=== PATIENT | female | born 1985 | race Two or more races ===

== ENCOUNTER 2021-02-06 13:14 | Emergency (ER) | payer SELFPAY ==
[~2021-02-06] VITALS: Ht 157.5 cm; Wt 69.0 kg
--- NOTE | 2021-02-06 14:12 | PHYS DOC ---
General Adult EDM: Chief Complaint: VAGINAL BLEEDING HPI: HPI: Patient is a 35-year-old female who presents to the emergency department for bilateral low back pain and vaginal bleeding in . Patient reports that her last menstrual period was December 08 that she is approximately 8 weeks . She reports that yesterday she had some pink-tinged blood while wiping after urination. She rates her back pain is out of 10. No radiation. No injury. No treatment prior to arrival. Patient denies abdominal pain, nausea, vomiting, dysuria. Patient denies any intercourse prior to vaginal bleeding. She reports that she had STD testing 2 weeks ago and it was all ne gative. Patient has not establish care with an PAINT PREPPER at this time. She is G4, P3. Patient states that she wants to get checked because she is about to go on a long car ride. Review of Systems: Review of Systems: GI: See HPI : See HPI Musculoskeletal: See HPI Heart Score: C/O Chest Pain: N/A Risk Factors: Risk Factors: DM, Current or recent (<one month) smoker, HTN, HLP, family history of CAD, obesity. Risk Scores: Score 0 - 3: 2.5% MACE over next 6 weeks - Discharge Home Score 4 - 6: 20.3% MACE over next 6 weeks - Admit for Clinical Observation Score 7 - 10: 72.7% MACE over next 6 weeks - Early Invasive Strategies Physical Exam: PE: Constitutional: Well developed, well nourished, no acute distress, non-toxic appearance. [] HENT: Normocephalic, atraumatic, bilateral external ears normal, oropharynx moist, no oral exudates, nose normal. [] Eyes: PERRL, EOMI, conjunctiva normal, no discharge. [] Neck: Normal range of motion, no tenderness, supple, no stridor. [] Cardiovascular:Heart rate regular rhythm, no murmur [] Lungs & Thorax: Bilateral breath sounds clear to auscultation [] Abdomen: Bowel sounds normal, soft, no tenderness, no masses, no pulsatile masses. [] Skin: Warm, dry, no erythema, no rash. [] Back: No bony spinal tenderness, no CVA tenderness. [] Extremities: No tenderness, no cyanosis, no clubbing, ROM intact, no edema. [] Neurologic: Alert and oriented X 3, normal motor function, normal sensory function, no focal deficits noted. [] Psychologic: Affect normal, judgement normal, mood normal. [] Current Patient Data: Labs: Laboratory Tests Test 02/06/21 13:55 02/06/21 14:12 02/06/21 14:37 Urine Collection Type Unknown Urine Color Yellow Urine Clarity Turbid Urine pH 8.0 Urine Specific [place] 1.020 Urine Protein Negative mg/dL Urine Glucose (UA) Negative mg/dL Urine Ketones (Stick) Negative mg/dL Urine Blood Negative Urine Nitrite Negative Urine Bilirubin Negative Urine Urobilinogen Dipstick 0.2 mg/dL Urine Leukocyte Esterase Small Urine RBC 0 /HPF Urine WBC 5-10 /HPF Urine Squamous Epithelial Cells Mod /LPF Urine Amorphous Sediment Present /HPF Urine Bacteria Few /HPF Bedside Urine HCG, Qualitative Hcg positive White Blood Count 6.6 x10^3/uL Red Blood Count 3.87 x10^6/uL Hemoglobin 13.1 g/dL Hematocrit 37.8 % Mean Corpuscular Volume 98 fL Mean Corpuscular Hemoglobin 34 pg Mean Corpuscular Hemoglobin Concent 35 g/dL Red Cell Distribution Width 12.4 % Platelet Count 165 x10^3/uL Neutrophils (%) (Auto) 67 % Lymphocytes (%) (Auto) 22 % Monocytes (%) (Auto) 8 % Eosinophils (%) (Auto) 3 % Basophils (%) (Auto) 1 % Neutrophils # (Auto) 4.4 x10^3/uL Lymphocytes # (Auto) 1.5 x10^3/uL Monocytes # (Auto) 0.5 x10^3/uL Eosinophils # (Auto) 0.2 x10^3/uL Basophils # (Auto) 0.1 x10^3/uL Sodium Level 138 mmol/L Potassium Level 4.3 mmol/L Chloride Level 104 mmol/L Carbon Dioxide Level 26 mmol/L Anion Gap 8 Blood Urea Nitrogen 9 mg/dL Creatinine 0.6 mg/dL Estimated GFR (Cockcroft-Gault) 113.8 BUN/Creatinine Ratio 15 Glucose Level 91 mg/dL Calcium Level 8.4 mg/dL Total Bilirubin 0.2 mg/dL Aspartate Amino Transf (AST/SGOT) 26 U/L Alanine Aminotransferase (ALT/SGPT) 32 U/L Alkaline Phosphatase 74 U/L Total Protein 6.8 g/dL Albumin 3.5 g/dL Albumin/Globulin Ratio 1.1 EKG: EKG: [] Radiology/Procedures: Radiology/Procedures: []PROCEDURE: OB < 14 WKS EXAM: Obstetrics sonogram. HISTORY: Vaginal bleeding. TECHNIQUE: Transabdominal sonographic imaging of the pelvis was performed. COMPARISON: None. FINDINGS: The uterus measures 10 x 8 x 7 cm. There is a single intrauterine gestational sac with pole and yolk sac. The crown-rump length is 2.2 cm, corresponding with a gestational age of 8 weeks and 3 days. The heart rate is normal at 171 bpm. The estimated due date is 09/12/2021. The maternal ovaries are normal in size and demonstrate normal blood flow. There is a 1.7 cm complicated left ovarian cyst. No subchronic hematoma is seen. The anatomic fluid volume is grossly normal. The gestational sac is normal in configuration. IMPRESSION: 1. Single intrauterine fetus with normal heart rate and gestational age of 8 w eeks and 6 days. 2. 1.7 cm complicated left ovarian cyst, likely an involuting or hemorrhagic cyst. 3. No finding to correspond with reported vaginal bleeding. Electronically signed by: Lexy Arrgeuin MD (02/06/2021 3:17 PM) [id number] DICTATED and SIGNED BY: LEXY ARREGUIN MD DATE: 02/06/21 [id number] 0 Course & Med Decision Making: Course & Med Decision Making Pertinent Labs and Imaging studies reviewed. (See chart for details) [] Patient presents to the emergency department for light pink vaginal discharge and bilateral low back pain. Work-up in the ER consisted of blood work, urinalysis and ultrasound. Ultrasound shows single 8-week 6-day with a left 1.7 cm cyst no other cause for the bleeding noted. Patient's CBC and CMP were unremarkable. Patient has a urine UTI that will be treated with antibiotic. Patient is O+ and therefore not requiring RhoGam. Patient advised to follow-up with PAINT PREPPER, she was given a referral for Dr. Trinidad who is the PAINT PREPPER at [facility]. She is advised to take Tylenol for her back pain. I discussed with patient all findings and diagnostic testing as well as the need to follow-up with PCP for further evaluation and treatment or return to the ER if any new or worsening symptoms. Strict return precautions were also discussed at length. Patient voiced understanding and agreement with the plan. Patient is hemodynamically stable at the time of disposition. Dragon Disclaimer: Dragon Disclaimer: This electronic medical record was generated, in whole or in part, using a voice recognition dictation system. Departure Departure Impression: Primary Impression: Vaginal bleeding in patient at less than 20 weeks gestation Disposition: HOME / SELF CARE / HOMELESS Condition: GOOD Referrals: NICHOLE TRINIDAD MD Patient Instructions: Vaginal Bleeding During , First Trimester Additional Instructions: You were seen in the emergency department for vaginal bleeding and bilateral low back pain. You can take Tylenol for your back pain. An ultrasound was performed that showed a single approximately 8 weeks and 6 days. The ultrasound did not show any cause for your vaginal bleeding. Your blood work was unremarkable. You are O+. Your urinalysis did show urinary tract infection and this will be treated with an antibiotic. Please start and finish this antibiotic completely. Increase your fluids and avoid bladder irritants like sugary beverages, caffeine. Follow-up with an PAINT PREPPER soon as possible. If you do not have an PAINT PREPPER you can contact Dr. Trinidad who is information is attached to this paperwork. Return to the emergency department if you develop worsening of your vaginal bleeding, intractable nausea or vomiting, high fevers refractory to treatment, lightheadedness, chest pain, shortness of breath. Scripts Cephalexin (KEFLEX) 500 Mg Capsule 1 CAP PO QID for 7 Days, #28 CAP 0 Refills Prov: ALFA ASHLEY APRN 02/06/21 ALFA ASHLEY APRN Feb 06, 2021 14:12
[2021-02-06 14:20] LABS: BILIRUBIN,URINE NEGATIVE (NEG); CLARITY,URINE TURBID; COLOR,URINE YELLOW; NITRITE,URINE NEGATIVE (NEG); PROTEIN,URINE NEGATIVE (NEG-TRACE); UROBILINOGEN,URINE 0.2 mg/dL (0.2 mg/dL)
[2021-02-06 14:28] LABS: AMORPHOUS SEDIMENT,UR PRESENT /HPF; BACTERIA,URINE FEW /HPF (0-FEW); RBC,URINE 0 /HPF (0-2)
[2021-02-06 14:44] LABS: BASO # 0.1 x10^3/uL (0.0-0.2); BASO % 1 % (0-3); EOS # 0.2 x10^3/uL (0.0-0.7); EOS % 3 % (0-3); HEMATOCRIT 37.8 % (36.0-47.0); HEMOGLOBIN 13.1 g/dL (12.0-15.5); LYMPH # 1.5 x10^3/uL (1.0-4.8); LYMPH % 22 % (24-48); MEAN CORPUSCULAR HEMOGLOBIN 34 pg (25-35); MEAN CORPUSCULAR HGB CONC 35 g/dL (31-37); MEAN CORPUSCULAR VOLUME 98 fL (79-100); MONO # 0.5 x10^3/uL (0.0-1.1); MONO % 8 % (0-9); NEUT # 4.4 x10^3/uL (1.8-7.7); NEUT % 67 % (31-73); PLATELET COUNT 165 x10^3/uL (140-400); RED BLOOD COUNT 3.87 x10^6/uL (3.50-5.40); RED CELL DISTRIBUTION WIDTH 12.4 % (11.5-14.5); WHITE BLOOD COUNT 6.6 x10^3/uL (4.0-11.0)
[2021-02-06 14:53] LABS: CALCIUM 8.4 mg/dL (8.5-10.1); CREATININE 0.6 mg/dL (0.6-1.0); GFR 113.8; POTASSIUM 4.3 mmol/L (3.5-5.1)
[2021-02-06 14:59] LABS: ALBUMIN 3.5 g/dL (3.4-5.0); ALBUMIN/GLOBULIN RATIO 1.1 (1.0-1.7); TOTAL BILIRUBIN 0.2 mg/dL (0.2-1.0); TOTAL PROTEIN 6.8 g/dL (6.4-8.2)
--- NOTE | 2021-02-06 15:20 | RAD ---
EXAM: Obstetrics sonogram. HISTORY: Vaginal bleeding. TECHNIQUE: Transabdominal sonographic imaging of the pelvis was performed. COMPARISON: None. FINDINGS: The uterus measures 10 x 8 x 7 cm. There is a single intrauterine gestational sac with feta l pole and yolk sac. The crown-rump length is 2.2 cm, corresponding with a gestational age of 8 weeks and 3 days. The heart rate is normal at 171 bpm. The estimated due date is 09/12/2021. Th e maternal ovaries are normal in size and demonstrate normal blood flow. There is a 1.7 cm complicate d left ovarian cyst. No subchronic hematoma is seen. The anatomic fluid volume is grossly normal. The gestational sac is normal in configuration. IMPRESSION: 1. Single intrauterine fetus with normal heart rate and gestational age of 8 weeks and 6 days. 2. 1.7 cm complicated left ovarian cyst, likely an involuting or hemorrhagic cyst. 3. No finding to correspond with reported vaginal bleeding. Electronically signed by: Lexy Gregory MD (02/06/2021 3:17 PM) [id number]
[2021-02-06] MEDS ORDERED: CEPH500C PO (15:37)
[2021-02-06 16:32] VITALS: BP 111/51
== END 2021-02-06 16:33 | disposition home or self-care (01) ==
LOC: ER 13:14
DX: O46.91 Antepartum hemorrhage, unspecified, first trimester (principal); O34.81 Maternal care for other abnormalities of pelvic organs, first trimester; N83.202 Unspecified ovarian cyst, left side; Z3A.08 8 weeks gestation of pregnancy
CPT/HCPCS: 36415; 76801; 80053; 81001; 81025; 84702; 85025; 86900; 86901; 87086; 99285-25

== ENCOUNTER 2021-02-20 06:24 | Observation (INO) | payer SELFPAY ==
[~2021-02-20] VITALS: Ht 157.5 cm; Wt 68.0 kg
[2021-02-20] VITALS (11 sets, daily range): BP systolic 78–93; BP diastolic 46–65
[~2021-02-20 06:24] MED LIST: CEPH500C PO
[2021-02-20] MEDS ORDERED: IV NORMAL SALINE 1000ML BAG 1,000 ML IV ONE ×2 (07:00→07:45)
--- NOTE | 2021-02-20 07:35 | PHYS DOC ---
Past Medical History Past Medical History: No Pertinent History Past Surgical History: , Other Smoking Status: Never Smoker Alcohol Use: Occasionally Drug Use: None General Adult EDM: Chief Complaint: VAGINAL BLEEDING HPI: HPI: Patient is a 35-year-old female who presents to the emergency department with heavy vaginal bleeding at approximately 10 weeks gestation. She reports 2 weeks prior she presented to ED for dysuria and was diagnosed with UTI but subsequently was found to be . Reports was confirmed via ultrasound. Patient reports she is a with 1 and 2 vaginal deliveries. Patient reports past pregnancies have been uncomplicated per the patient. The patient denies being on any blood thinning medications. She reports that at 0500 hrs she went to the bathroom and had per her heavy bleeding with clots. Reports some dizziness. Denies fever/chills. Denies trauma. Denies known exposure to COVID-19. Review of Systems: Review of Systems: Constitutional: Denies fever or chills Eyes: Denies redness or eye pain HENT: Denies nasal congestion or sore throat Respiratory: Denies cough or shortness of breath Cardiovascular: Denies chest pain or palpitations; reports dizzy, lightheaded GI: Denies abdominal pain, nausea, or vomiting : Denies dysuria or hematuria; reports vaginal bleeding in Musculoskeletal: Denies back pain or joint pain Integument: Denies rash or skin lesions Neurologic: Denies headache, focal weakness or sensory changes Complete systems were reviewed and found to be within normal limits, except as documented in this note. Heart Score: C/O Chest Pain: N/A Family History: Family History: Unremarkable family history Current Medications: Current Medications Medications (Trade) Dose Ordered Sig/Terry Start Time Stop Time Status Last Admin Dose Admin Sodium Chloride 1,000 ml @ 1,000 mls/hr 1X ONCE 02/20/21 07:00 02/20/21 07:59 Allergies: Allergies: Allergies Coded Allergies Type Severity Reaction Last Updated Verified No Known Drug Allergies 02/06/21 No Physical Exam: PE: Constitutional: Well developed, well nourished, pale, mild distress, tearful HENT: Normocephalic, atraumatic Eyes: PERRL, conjunctiva normal, no discharge Neck: Normal range of motion, no tenderness, supple, no JVD, trachea midline Lungs & Thorax: No respiratory distress, normal chest wall excursion bilaterally, lung sounds clear to auscultation in all au bilateral Cardiovascular: +1 pulses regular rate rhythm, S1/S2 heart sounds normal Abdomen: Soft, no tenderness, no guarding Skin: Warm, dry, no erythema, no rash Pelvic exam: Pelvic exam chaperoned by Hazel MONTOYA. Patient with numerous large clots in the bed, patient positioned into the lithotomy position, blood was suctioned from the patient's vaginal canal a total amount of approximately 500 cc was in the suction canister at the end of the procedure, large clots were removed with ring forceps, products of conception was visualized within the cervical os, products were extracted from the vaginal canalan intact amniotic sac containing a visualized fetus was removed as well as a small piece of placental tissue Back: No tenderness, no CVA tenderness Extremities: No tenderness, ROM intact, no edema Neurologic: Alert and oriented X 3, normal motor function, normal sensory function, no focal deficits noted Psychologic: Affect normal, judgment normal Current Patient Data: Vital Signs: Vital Signs Date Time Temp Pulse Resp B/P (MAP) Pulse Ox O2 Delivery O2 Flow Rate FiO2 02/20/21 06:36 98.1 113 18 150/65 (93) 97 Room Air 98.1 EKG: EKG: [] Radiology/Procedures: Radiology/Procedures: PROCEDURE: OB < 14 WKS INDICATION: Reason: bleeding in early / Spl. Instructions: / History: COMPARISON: February 06, 2021 TECHNIQUE: Grayscale and color ultrasound images of the pelvis. FINDINGS: Uterus: 130 x 70 x 70 mm. No intrauterine gestational sac is seen. Right ovary is obscured. Left ovary is 26 x 20 x 19 mm. Vascular flow seen. IMPRESSION: * No intrauterine gestational sac or pole is identified. This can be seen with early failure with interval passage of gestational sac and pole. Electronically signed by: Vinod Villegas MD (02/20/2021 8:01 AM) [id number] Course & Med Decision Making: Course & Med Decision Making Pertinent Labs and Imaging studies reviewed. (See chart for details) 35-year-old female presents to the emergency department with report of heavy vaginal bleeding in . She reports recent confirmed by ultrasound, HPI as documented within this report. Patient was positioned on OB cart, soon after there were a significant amount of blood and large clots in the bed. Pelvic exam performed, chaperoned by Hazel MONTOYA. During pelvic exam approximately 500cc of blood was suctioned from the patient's vagina in total; additionally large clots were extracted from the vaginal canal. An intact embryonic sac containing fetus was extracted from the patient's cervical os. Following this procedure the patient continued actively hemorrhaging. While in the emergency department large-bore IV access was established, fluids were administered, blood work, continuous cardiac monitoring maintain. OB was consulted urgently. Spoke with Dr. Blackwood (OB-NEEDLE LEADER) who agreed with plan for surgical intervention with suction D&C. Plan for admission after OR. Discussed findings and plan with patient and family, who acknowledge understanding and agreement. Dragon Disclaimer: Dragon Disclaimer: This electronic medical record was generated, in whole or in part, using a voice recognition dictation system. Departure Departure Impression: Primary Impression: Incomplete miscarriage Additional Impressions: Hypotension Qualified Codes: I95.89 - Other hypotension; E86.1 - Hypovolemia Vaginal hemorrhage Disposition: ADMITTED INPATIENT (Dr. Blackwood (LOOM INSPECTOR)) Condition: GUARDED Referrals: NO PCP (PCP) Critical Care Time Critical care time was 30-74 minutes which includes time at bedside, spent in discussion of patient's care with specialists and/or family members, with interpretation of laboratory and/or radiological studies and is exclusive of procedures. NICHOLE ABAD DO Feb 20, 2021 07:35
[2021-02-20] MEDS ORDERED: fentaNYL PF VIAL 100 MCG/2 ML VIAL IVP PRN (07:45)
[2021-02-20] MEDS ORDERED: ONDANSETRON PF 4 MG/2 ML VIAL. IVP PRN (07:45)
--- NOTE | 2021-02-20 08:03 | RAD ---
INDICATION: Reason: bleeding in early / Spl. Instructions: / History: COMPARISON: February 06, 2021 TECHNIQUE: Grayscale and color ultrasound images of the pelvis. FINDINGS: Uterus: 130 x 70 x 70 mm. No intrauterine gestational sac is seen. Right ovary is obscured. Left ovary is 26 x 20 x 19 mm. Vascular flow seen. IMPRESSION: * No intrauterine gestational sac or pole is identified. This can be seen with early failure with interval passage of gestational sac and pole. Electronically signed by: Vinod Villegas MD (02/20/2021 8:01 AM) [id number]
[2021-02-20] MEDS ORDERED: SUCCINYLCHOLINE 200 MG/10 ML VIAL. ONE (08:14)
[2021-02-20] MEDS ORDERED: LIDOCAINE 2% PF 5 ML VIAL. ONE (08:14)
[2021-02-20] MEDS ORDERED: PROPOFOL 10 MG/ML (20ML) VIAL. IV ONE (08:14)
[2021-02-20] MEDS ORDERED: DEXAMETHASONE SOD PHOS 4 MG/ML VIAL ONE (08:14)
[2021-02-20] MEDS ORDERED: ONDANSETRON PF 4 MG/2 ML VIAL. ONE ×2 (08:14→08:19)
[2021-02-20] MEDS ORDERED: fentaNYL PF VIAL 100 MCG/2 ML VIAL ONE (08:17)
--- NOTE | 2021-02-20 08:17 | PDOC1 ---
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 Early this am the pt began to bleed heavy. When she presented to the ER it appeared that she passed most of her POC, but continued to bleed heavy. The pt has not established care yet. Medications: Meds: Current Medications Medications (Trade) Dose Ordered Sig/Terry Route PRN Reason Start Time Stop Time Status Last Admin Dose Admin Sodium Chloride 1,000 ml @ 1,000 mls/hr 1X ONCE IV 02/20/21 07:00 02/20/21 07:59 DC 02/20/21 07:00 Ondansetron HCl (Zofran) 4 mg PRN Q8HRS PRN IVP NAUSEA/VOMITING 02/20/21 07:45 02/21/21 07:44 02/20/21 08:03 Fentanyl Citrate (Fentanyl 2ml Vial) 50 mcg PRN Q2HRS PRN IVP PAIN 02/20/21 07:45 02/20/21 08:04 Sodium Chloride 1,000 ml @ 0 mls/hr 1X ONCE IV 02/20/21 07:45 02/20/21 07:49 DC 02/20/21 08:03 Allergies: Coded Allergies: No Known Drug Allergies (Unverified , 02/06/21) Physical Exam: Vital Signs: Vital Signs Date Time Temp Pulse Resp B/P (MAP) Pulse Ox O2 Delivery O2 Flow Rate FiO2 02/20/21 08:04 22 98 02/20/21 06:36 98.1 113 150/65 (93) Room Air 98.1 PE: GENERAL: No apparent distress. Alert and oriented. HEENT: Head normocephalic, atraumatic. NECK: Supple LUNGS: Clear to auscultation. HEART: RRR, S1, S2 present, pulses intact ABDOMEN: Soft, positive bowel sounds. EXTREMITIES: No cyanosis or edema. NEUROLOGIC: Normal speech, normal tone PSYCHIATRIC: Normal affect, normal mood. SKIN: No ulceration. PMH: Denies PSH: Denies Meds: PNV All: NKDA OBHx: TSVD x 2, TC/S x 1 SH: no tob, no EtOH FH: noncontributory Assessment & Plan: A/P 35y with a SAB ~10.4 1.) SAB since continued active bleeding will move toward suction D&C 2.) VB Hgb pending NICHOLE TRINIDAD MD Feb 20, 2021 08:17
[2021-02-20] MEDS ORDERED: MIDAZOLAM HCL/PF 2 MG/2 ML VIAL. ONE (08:18)
[2021-02-20 08:19] LABS: CALCIUM 8.3 mg/dL (8.5-10.1); CREATININE 0.6 mg/dL (0.6-1.0); GFR 113.8; POTASSIUM 3.3 mmol/L (3.5-5.1)
[2021-02-20 08:24] LABS: ALBUMIN 3.1 g/dL (3.4-5.0); MAGNESIUM 1.8 mg/dL (1.8-2.4); TOTAL BILIRUBIN 0.7 mg/dL (0.2-1.0); TOTAL PROTEIN 6.1 g/dL (6.4-8.2)
[2021-02-20] MEDS ORDERED: PHENYLEPHRINE in 0.9% NACL PF 1 MG/10 ML SYRINGE. IV ONE (08:26)
[2021-02-20] MEDS ORDERED: OXYTOCIN 10 UNIT/ML VIAL. ONE ×3 (08:27→08:28)
[2021-02-20 08:28] LABS: BASO % 0 % (0-3); EOS # 0.1 x10^3/uL (0.0-0.7); EOS % 1 % (0-3); HEMATOCRIT 34.7 % (36.0-47.0); HEMOGLOBIN 11.6 g/dL (12.0-15.5); LYMPH # 1.2 x10^3/uL (1.0-4.8); LYMPH % 10 % (24-48); MEAN CORPUSCULAR HEMOGLOBIN 33 pg (25-35); MEAN CORPUSCULAR HGB CONC 34 g/dL (31-37); MEAN CORPUSCULAR VOLUME 97 fL (79-100); MONO # 0.6 x10^3/uL (0.0-1.1); MONO % 5 % (0-9); NEUT # 9.9 x10^3/uL (1.8-7.7); NEUT % 84 % (31-73); PLATELET COUNT 142 x10^3/uL (140-400); RED BLOOD COUNT 3.57 x10^6/uL (3.50-5.40); RED CELL DISTRIBUTION WIDTH 12.2 % (11.5-14.5); WHITE BLOOD COUNT 11.7 x10^3/uL (4.0-11.0)
[2021-02-20] MEDS ORDERED: ROCURONIUM 50 MG/5 ML VIAL. ONE (08:28)
[2021-02-20] MEDS ORDERED: ETOMIDATE 20 MG/10 ML VIAL. IV ONE (08:30)
[2021-02-20] MEDS ORDERED: FAMOTIDINE 20 MG/2 ML VIAL ONE (08:45)
[2021-02-20] MEDS ORDERED: DOXYCYCLINE HYCLATE 100 MG in IV DEXTROSE 5% 100ML 100 ML IV ONE (09:00)
[2021-02-20] MEDS ORDERED: NEOSTIGMINE METHYLSULFATE 5 MG/5 ML SYRINGE. ONE (09:12)
[2021-02-20] MEDS ORDERED: GLYCOPYRROLATE 1 MG/5 ML VIAL. ONE (09:12)
[2021-02-20] MEDS ORDERED: OXYC1TAB15 PO (09:19)
[2021-02-20] MEDS ORDERED: IBUP-1060 PO (09:19)
--- NOTE | 2021-02-20 10:11 | PDOC4 ---
OPERATIVE NOTE: PreOp Dx: 1.) 10wk SAB, 2.) VB PostOp Dx: same Procedure: Suction D&C Surgeon: Geronimo Trinidad Anesthesia: LMA EBL: 200 cc Fluids: 1000 cc UOP: 75 cc Specimen: POC Complications: None NICHOLE TRINIDAD MD Feb 20, 2021 10:11
--- NOTE | 2021-02-20 10:30 | OP ---
DATE OF SURGERY: 02/20/2021 PREOPERATIVE DIAGNOSES: 1. Approximately 10-week spontaneous . 2. Vaginal bleeding. POSTOPERATIVE DIAGNOSES: 1. Approximately 10-week spontaneous . 2. Vaginal bleeding. PROCEDURE: Suction D and C. SURGEON: Jose J Blackwood MD ANESTHESIA: LMA. ESTIMATED BLOOD LOSS: 200 mL FLUIDS: 1000 mL URINE OUTPUT: 75 mL SPECIMENS: Products of conception. COMPLICATIONS: None. DESCRIPTION OF PROCEDURE: The patient was taken to the operating room where LMA was placed without difficulty. The patient was prepped and draped in normal sterile fashion. A posterior weighted speculum was placed in the patient's vagina and a right angle retractor was used to visualize the anterior lip of the cervix. A single tooth tenaculum was then placed on the anterior lip of the cervix. The cervix was sufficiently dilated to allow for 11 cm curved suction curette to be placed. The uterus had been sounded to approximately 12 cm. The curette was then advanced to the fundus and the suction was then activated. The curette was rotated until all products of conception were cleared. Once this was accomplished, sharp curetting was performed with minimal return of blood and gritty texture felt in all 4 quadrants. Before it was terminated, one more pass with the suction curette was then performed with no tissue returning. At that point, the procedure was terminated. The tenaculum was removed with minimal bleeding at the tenaculum site. Good hemostasis was noted. The patient was given 200 mg of doxycycline. ZOFIA DR: Catalino TID: [id number]
[2021-02-20 10:44] LABS: HEMATOCRIT 24.7 % (36.0-47.0); HEMOGLOBIN 8.2 g/dL (12.0-15.5); RED BLOOD COUNT 2.45 x10^6/uL (3.50-5.40); RED CELL DISTRIBUTION WIDTH 12.3 % (11.5-14.5); WHITE BLOOD COUNT 13.8 x10^3/uL (4.0-11.0)
[2021-02-20] MEDS ORDERED: IV RINGERS,LACTATED 1000ML 1,000 ML IV ONE (10:45)
[2021-02-20] MEDS ORDERED: oxyCODONE/APAP 5/325 1 TAB TABLET PO PRN (11:30)
[2021-02-20] MEDS ORDERED: IBUPROFEN 400 MG TABLET. PO PRN (11:30)
--- NOTE | 2021-02-20 12:10 | NUR ---
Received Patient from PACU for an extended recovery stay for low BPs. Patient awake denies pain. Vpad has small amount of bright red blood on pad. Plan discussed. Assessment done
--- NOTE | 2021-02-20 12:15 | NUR ---
Dr Blackwood here to see patient. orders for po fluids. Hbg at 1400.
--- NOTE | 2021-02-20 13:15 | NUR ---
Patient states needs to go to the BR. Two RN to assist. Patient states she is dizzy and hearing ringing in her ears. Assisted back to laying down. Bedpan given. Voided 200cc of blood tinged urine. New v pad placed. Jello and applesauce and crackers given
[2021-02-20] MEDS ORDERED: AMMONIA AROMATIC 15% INHALANT AMPUL. ONE (13:17)
[2021-02-20 14:36] LABS: BASO % 0 % (0-3); EOS % 0 % (0-3); HEMATOCRIT 22.7 % (36.0-47.0); HEMOGLOBIN 7.7 g/dL (12.0-15.5); LYMPH # 0.4 x10^3/uL (1.0-4.8); LYMPH % 3 % (24-48); MEAN CORPUSCULAR HEMOGLOBIN 33 pg (25-35); MEAN CORPUSCULAR HGB CONC 34 g/dL (31-37); MEAN CORPUSCULAR VOLUME 99 fL (79-100); MONO # 0.3 x10^3/uL (0.0-1.1); MONO % 2 % (0-9); NEUT # 14.9 x10^3/uL (1.8-7.7); NEUT % 95 % (31-73); PLATELET COUNT 118 x10^3/uL (140-400); RED CELL DISTRIBUTION WIDTH 12.5 % (11.5-14.5); WHITE BLOOD COUNT 15.7 x10^3/uL (4.0-11.0)
--- NOTE | 2021-02-20 15:00 | NUR ---
Dr Blackwood here to see patient. Talks to Patient re her hgb and may go home when feeling stable. Assisted patient to standing position. Patient felt weak and dizzy. assisted back to bed.
--- NOTE | 2021-02-20 16:00 | NUR ---
Assisted up to the BR voided 325cc. Patient feels weak and dizzy. Assisted back to bed. Dr Blackwood informed patient was dizzy orders to keep over night.
--- NOTE | 2021-02-20 17:00 | NUR ---
Assisted up to the br with 2 people. patient felt dizzy on return to bed voided 400cc. sct blood on v pad
--- NOTE | 2021-02-20 17:04 | PDOC ---
[employer] PROGRESS NOTE Date of Service: DATE: 02/20/21 TIME: 17:04 Subjective: The pt is feeling lightheaded. Pt with good pain control. Hayden PO. Voiding. Minimal VB Objective: Vital Signs: Vital Signs Date Time Temp Pulse Resp B/P (MAP) Pulse Ox O2 Delivery O2 Flow Rate FiO2 02/20/21 06:36 98.1 113 18 150/65 (93) 97 Room Air 98.1 02/20/21 09:20 10 Vital Signs Date Time Temp Pulse Resp B/P (MAP) Pulse Ox O2 Delivery O2 Flow Rate FiO2 02/20/21 16:00 99 20 83/55 (64) 02/20/21 15:00 98.0 98 98.0 02/20/21 11:50 Room Air 02/20/21 10:20 10 Labs: Laboratory Tests Test 02/20/21 07:48 02/20/21 07:51 02/20/21 10:35 02/20/21 14:25 White Blood Count 11.7 x10^3/uL (4.0-11.0) H 13.8 x10^3/uL (4.0-11.0) H 15.7 x10^3/uL (4.0-11.0) H Red Blood Count 3.57 x10^6/uL (3.50-5.40) 2.45 x10^6/uL (3.50-5.40) L 2.30 x10^6/uL (3.50-5.40) L Hemoglobin 11.6 g/dL (12.0-15.5) L 8.2 g/dL (12.0-15.5) L 7.7 g/dL (12.0-15.5) L Hematocrit 34.7 % (36.0-47.0) L 24.7 % (36.0-47.0) L 22.7 % (36.0-47.0) L Mean Corpuscular Volume 97 fL (79-100) 101 fL (79-100) H 99 fL (79-100) Mean Corpuscular Hemoglobin 33 pg (25-35) 33 pg (25-35) 33 pg (25-35) Mean Corpuscular Hemoglobin Concent 34 g/dL (31-37) 33 g/dL (31-37) 34 g/dL (31-37) Red Cell Distribution Width 12.2 % (11.5-14.5) 12.3 % (11.5-14.5) 12.5 % (11.5-14.5) Platelet Count 142 x10^3/uL (140-400) 107 x10^3/uL (140-400) L 118 x10^3/uL (140-400) L Neutrophils (%) (Auto) 84 % (31-73) H 95 % (31-73) H Lymphocytes (%) (Auto) 10 % (24-48) L 3 % (24-48) L Monocytes (%) (Auto) 5 % (0-9) 2 % (0-9) Eosinophils (%) (Auto) 1 % (0-3) 0 % (0-3) Basophils (%) (Auto) 0 % (0-3) 0 % (0-3) Neutrophils # (Auto) 9.9 x10^3/uL (1.8-7.7) H 14.9 x10^3/uL (1.8-7.7) H Lymphocytes # (Auto) 1.2 x10^3/uL (1.0-4.8) 0.4 x10^3/uL (1.0-4.8) L Monocytes # (Auto) 0.6 x10^3/uL (0.0-1.1) 0.3 x10^3/uL (0.0-1.1) Eosinophils # (Auto) 0.1 x10^3/uL (0.0-0.7) 0.0 x10^3/uL (0.0-0.7) Basophils # (Auto) 0.0 x10^3/uL (0.0-0.2) 0.0 x10^3/uL (0.0-0.2) Maternal Serum HCG Beta Subunit 944250 mIU/mL (0-5) H Sodium Level 138 mmol/L (136-145) Potassium Level 3.3 mmol/L (3.5-5.1) L Chloride Level 103 mmol/L (98-107) Carbon Dioxide Level 25 mmol/L (21-32) Anion Gap 10 (6-14) Blood Urea Nitrogen 8 mg/dL (7-20) Creatinine 0.6 mg/dL (0.6-1.0) Estimated GFR (Cockcroft-Gault) 113.8 BUN/Creatinine Ratio 13 (6-20) Glucose Level 105 mg/dL (70-99) H Calcium Level 8.3 mg/dL (8.5-10.1) L Magnesium Level 1.8 mg/dL (1.8-2.4) Total Bilirubin 0.7 mg/dL (0.2-1.0) Aspartate Amino Transferase (AST) 17 U/L (15-37) Alanine Aminotransferase (ALT) 44 U/L (14-59) Alkaline Phosphatase 70 U/L (46-116) Total Protein 6.1 g/dL (6.4-8.2) L Albumin 3.1 g/dL (3.4-5.0) L Albumin/Globulin Ratio 1.0 (1.0-1.7) SARS-CoV-2 Antigen (Rapid) Negative (NEGATIVE) Platelet Estimate Pending Laboratory Tests 02/20/21 07:48 02/20/21 10:35 02/20/21 14:25 Laboratory Tests 02/20/21 07:48 Laboratory Tests 02/20/21 07:48 02/20/21 14:25 Physical Exam: GENERAL: No apparent distress. Alert and oriented. HEENT: Head normocephalic, atraumatic. NECK: Supple LUNGS: Clear to auscultation. HEART: RRR, S1, S2 present, pulses intact ABDOMEN: Soft, positive bowel sounds. EXTREMITIES: No cyanosis or edema. NEUROLOGIC: Normal speech, normal tone PSYCHIATRIC: Normal affect, normal mood. SKIN: No ulceration. Assessment & Plan: A/P 35y POD #1 s/p suction D&C 1.) PO very lightheaded when standing. Likely 2/2 to blood loss from AB. Will keep overnight until asx 2.) VB minimal since surgery 3.) Anemia 11.6 -> 8.2 -> 7.7 4.) Will keep overnight NICHOLE TRINIDAD MD Feb 20, 2021 17:04
[2021-02-20] MEDS ORDERED: FLU VACC QUAD 21-22 (6MOS+) PF 0.5 ML SYRINGE. VAX IM ONE (17:15)
[2021-02-20 17:42] LABS: % BANDS 1 % (0-9); % LYMPHS 5 % (24-48); % SEGS 94 % (35-66); PLT ESTIMATE DECREASED (ADEQUATE)
[2021-02-20 17:45] LABS: SPHEROCYTES OCC
--- NOTE | 2021-02-20 18:40 | NUR ---
Assisted up to the Br voided.300cc Pad change small amount of blood. Assisted back to bed. Denies being dizzy at this time
[2021-02-21] VITALS (10 sets, daily range): BP systolic 77–95; BP diastolic 33–54
[2021-02-21 06:33] LABS: BASO % 0 % (0-3); EOS % 0 % (0-3); LYMPH # 1.6 x10^3/uL (1.0-4.8); LYMPH % 16 % (24-48); MEAN CORPUSCULAR HEMOGLOBIN 34 pg (25-35); MEAN CORPUSCULAR HGB CONC 34 g/dL (31-37); MEAN CORPUSCULAR VOLUME 98 fL (79-100); MONO # 0.7 x10^3/uL (0.0-1.1); MONO % 7 % (0-9); NEUT # 7.7 x10^3/uL (1.8-7.7); NEUT % 77 % (31-73); PLATELET COUNT 107 x10^3/uL (140-400); RED BLOOD COUNT 1.84 x10^6/uL (3.50-5.40); RED CELL DISTRIBUTION WIDTH 12.3 % (11.5-14.5)
[2021-02-21 06:42] LABS: HEMATOCRIT 18.1 % (36.0-47.0); HEMOGLOBIN 6.2 g/dL (12.0-15.5)
--- NOTE | 2021-02-21 09:11 | PDOC ---
[employer]IST[employer] PROGRESS NOTE Date of Service: DATE: 02/21/21 TIME: 09:10 Subjective: Pt feels better. Objective: Vital Signs: Vital Signs Date Time Temp Pulse Resp B/P (MAP) Pulse Ox O2 Delivery O2 Flow Rate FiO2 02/20/21 07:00 88 14 105/62 (76) 96 Room Air 02/20/21 08:25 98.1 98.1 02/20/21 09:20 10 Vital Signs Date Time Temp Pulse Resp B/P (MAP) Pulse Ox O2 Delivery O2 Flow Rate FiO2 02/21/21 08:45 98.1 84 18 90/49 98.1 02/21/21 05:05 98 02/21/21 00:13 Room Air 02/20/21 19:25 10.0 Labs: Laboratory Tests Test 02/20/21 10:35 02/20/21 14:25 02/21/21 06:15 White Blood Count 13.8 x10^3/uL (4.0-11.0) H 15.7 x10^3/uL (4.0-11.0) H 10.0 x10^3/uL (4.0-11.0) Red Blood Count 2.45 x10^6/uL (3.50-5.40) L 2.30 x10^6/uL (3.50-5.40) L 1.84 x10^6/uL (3.50-5.40) L Hemoglobin 8.2 g/dL (12.0-15.5) L 7.7 g/dL (12.0-15.5) L 6.2 g/dL (12.0-15.5) *L Hematocrit 24.7 % (36.0-47.0) L 22.7 % (36.0-47.0) L 18.1 % (36.0-47.0) *L Mean Corpuscular Volume 101 fL (79-100) H 99 fL (79-100) 98 fL (79-100) Mean Corpuscular Hemoglobin 33 pg (25-35) 33 pg (25-35) 34 pg (25-35) Mean Corpuscular Hemoglobin Concent 33 g/dL (31-37) 34 g/dL (31-37) 34 g/dL (31-37) Red Cell Distribution Width 12.3 % (11.5-14.5) 12.5 % (11.5-14.5) 12.3 % (11.5-14.5) Platelet Count 107 x10^3/uL (140-400) L 118 x10^3/uL (140-400) L 107 x10^3/uL (140-400) L Neutrophils (%) (Auto) 95 % (31-73) H 77 % (31-73) H Lymphocytes (%) (Auto) 3 % (24-48) L 16 % (24-48) L Monocytes (%) (Auto) 2 % (0-9) 7 % (0-9) Eosinophils (%) (Auto) 0 % (0-3) 0 % (0-3) Basophils (%) (Auto) 0 % (0-3) 0 % (0-3) Neutrophils # (Auto) 14.9 x10^3/uL (1.8-7.7) H 7.7 x10^3/uL (1.8-7.7) Lymphocytes # (Auto) 0.4 x10^3/uL (1.0-4.8) L 1.6 x10^3/uL (1.0-4.8) Monocytes # (Auto) 0.3 x10^3/uL (0.0-1.1) 0.7 x10^3/uL (0.0-1.1) Eosinophils # (Auto) 0.0 x10^3/uL (0.0-0.7) 0.0 x10^3/uL (0.0-0.7) Basophils # (Auto) 0.0 x10^3/uL (0.0-0.2) 0.0 x10^3/uL (0.0-0.2) Segmented Neutrophils % 94 % (35-66) H Band Neutrophils % 1 % (0-9) Lymphocytes % 5 % (24-48) L Platelet Estimate Decreased (ADEQUATE) Basophilic Stippling Present Spherocytes Occ Laboratory Tests 02/20/21 10:35 02/20/21 14:25 02/21/21 06:15 Laboratory Tests 02/21/21 06:15 Physical Exam: GENERAL: No apparent distress. Alert and oriented. HEENT: Head normocephalic, atraumatic. NECK: Supple LUNGS: Clear to auscultation. HEART: RRR, S1, S2 present, pulses intact ABDOMEN: Soft, positive bowel sounds. EXTREMITIES: No cyanosis or edema. NEUROLOGIC: Normal speech, normal tone PSYCHIATRIC: Normal affect, normal mood. SKIN: No ulceration. Assessment & Plan: A/P 35y POD #1 s/p suction D&C 1.) PO was lightheaded yesterday afternoon. Likely 2/2 to blood loss from AB. 2.) Anemia 11.6 -> 8.2 -> 7.7 -> 6.2 (this am), will transfuse 1U pRBC, will recheck 4hr post transfusion 3.) VB minimal since surgery 4.) Will d/c if Hgb stable NICHOLE TRINIDAD MD Feb 21, 2021 09:10
[2021-02-21 15:12] LABS: BASO % 0 % (0-3); EOS # 0.1 x10^3/uL (0.0-0.7); EOS % 1 % (0-3); HEMATOCRIT 23.4 % (36.0-47.0); HEMOGLOBIN 8.1 g/dL (12.0-15.5); LYMPH # 1.8 x10^3/uL (1.0-4.8); LYMPH % 19 % (24-48); MEAN CORPUSCULAR HEMOGLOBIN 33 pg (25-35); MEAN CORPUSCULAR HGB CONC 35 g/dL (31-37); MEAN CORPUSCULAR VOLUME 95 fL (79-100); MONO # 0.6 x10^3/uL (0.0-1.1); MONO % 7 % (0-9); NEUT # 6.9 x10^3/uL (1.8-7.7); NEUT % 73 % (31-73); PLATELET COUNT 112 x10^3/uL (140-400); RED BLOOD COUNT 2.45 x10^6/uL (3.50-5.40); RED CELL DISTRIBUTION WIDTH 13.3 % (11.5-14.5); WHITE BLOOD COUNT 9.4 x10^3/uL (4.0-11.0)
--- NOTE | 2021-02-21 17:00 | NUR ---
Pt. Discharges off the unit at this time. and child accompany, pt. discharges via wheelchair, VSS. Belongings go with pt. at this time.
== END 2021-02-21 17:39 | disposition home or self-care (01) ==
LOC: ER 06:24 → 3 NORTH 11:21 → UNDODISOB 02-21 17:39
PROVIDERS: ADMIT Obstetrics & Gynecology; ATTEND Obstetrics & Gynecology
DX: O20.9 Hemorrhage in early pregnancy, unspecified (principal); Z20.822 Contact with and (suspected) exposure to COVID-19; O09.521 Supervision of elderly multigravida, first trimester; O23.41 Unspecified infection of urinary tract in pregnancy, first trimester; N39.0 Urinary tract infection, site not specified; O26.51 Maternal hypotension syndrome, first trimester; O26.891 Other specified pregnancy related conditions, first trimester; E86.1 Hypovolemia; Z3A.10 10 weeks gestation of pregnancy; Z98.891 History of uterine scar from previous surgery; Z98.890 Other specified postprocedural states; Z79.899 Other long term (current) drug therapy
CPT/HCPCS: 36415; 36430; 59820; 76801; 80053; 83735; 84702; 85007; 85025; 85027; 86850; 86900; 86901; 86920; 87426; 88300; 88305; 96361; 96374; 96375; 99291; A4930; G0378; J0330; J1100; J2250; J2370; J2405; J2590; J2704; J2710; J3010; J3490; J7030; J7120; P9016; U0003; U0005; A4322; A4351; G0379